=== PATIENT | female | born 1940 | race Two or more races ===

== ENCOUNTER 2024-05-22 13:31 | Emergency (ER) | payer OTHER, MEDICAID ==
[~2024-05-22] VITALS: Ht 152.4 cm; Wt 86.0 kg
--- NOTE | 2024-05-22 14:11 | ED.PDOC ---
History of Present Illness HPI Comments 84 y/o F, with a Hx of HTN and hypothyroidism, is BIBA for c/o abscess wound to left-medial thigh, today. Per EMS report, patient endorses on calling EMS and requesting to have her "abscess" that she has had for unknown duration of time evaluated. Patient reports no additional relevant or pertinent Hx, such as recent skin-contact exposure or previous injury to area. She denies having any additional associated symptoms at this time. Chief Complaint: Abscess Time Seen by MD: 13:30 Reviewed Notes: Nurses Notes, Air Conditioning Manager Notes, Medications, Allergies Home Meds Active Scripts Sulfamethoxazole W/Trimethopri (Bactrim Ds Tablet) 1 Tab Tb, 1 TAB PO BID for 7 Days, #14 TAB Prov:KOBI BENOIT MD 05/22/24 Information Source: Patient, Emergency Med Personnel Mode of Arrival: EMS Severity: Moderate Timing: Other (see HPI) Duration: Since onset Prehospital treatment: 12 Lead EKG, Server Past Medical History PAST MEDICAL HISTORY: HTN, Thyroid (hypothyroidism ) Surgical History: Denies all surgeries JOB MOLDER History: No Pertinent JOB MOLDER History Family History Family History: Reviewed,noncontributory to illness, No family hx of Cancer, No family hx of DM, No family hx of Heart ana maria, No family hx of HTN, No family hx ofKidney ana maria, No family hx of Liver ana maria, No family hx of Lung ana maria, No family hx of Stroke Social History Smoker: Non-Smoker Alcohol: Denies ETOH Use Drugs: Denies Drug Use Lives In: Home Integumetry: reports: wounds (abscess wound to left-medial thigh) All Other Systems: Reviewed and Negative (negative unless otherwise stated above or in HPI) Physical Exam General Appearance: No Apparent Distress, Normal HEENT: Normal ENT Inspection, Pharynx Normal, TMs Normal Neck: Full Range of Motion, Non-Tender, Normal, Normal Inspection Respiratory: Chest Non-Tender, Lungs Clear, No Accessory Muscle Use, No Respiratory Distress, Normal Breath Sounds Cardiovascular: No Edema, No JVD, No Murmur, No Gallop, Normal Peripheral Pulses, Regular Rate/Rhythm Breast Exam: Deferred Gastrointestinal: No Organomegaly, Non Tender, No Pulsatile Mass, Normal Bowel Sounds, Soft Genitalia: Deferred Pelvic: Deferred Rectal: Deferred Extremities: No calf tenderness, Normal capillary refill, Normal inspection, Normal range of motion, Non-tender, No pedal edema Musculoskeletal : Apperance: Normal Neurologic: Alert, carpenter bridge II-XII nml as Tested, No Motor Deficits, Normal Affect, Normal Mood, No Sensory Deficits Cerebellar Function: Normal Reflexes: Normal Skin: Dry, Normal Color, Warm, Other (mild cellulitis with no fluctuance to proximal-medial left thigh) Lymphatic: No Adenopathy Was a procedure done? Was a procedure done?: No Differential Dx Considerations may include: cellulitis X-Ray, Labs, Meds, VS Vital Signs Date Time Temp Pulse Resp B/P (MAP) Pulse Ox O2 Delivery O2 Flow Rate FiO2 05/22/24 16:04 93 16 93 Room Air 05/22/24 16:04 98.0 73 16 139/75 (96) 93 98.0 05/22/24 14:04 97.7 66 16 162/98 (119) 95 No images or lab were ordered, due to patient endorsing no symptoms at time of assessment, aside from initial complaint of wanting her abscess checked out. Time of 1ST Reevaluation: 14:00 Reevaluation 1ST: Unchanged Patient Education/Counseling: Diagnosis, Treatment Family Education/Counseling: No Family Present Departure 1 Departure Time of Disposition: 16:52 Impression: Primary Impression: Cellulitis of thigh Disposition: 01 HOME / SELF CARE / HOMELESS Condition: Stable Additional Instructions: Thank you for visiting our Emergency Room. I wish you full and complete recovery. Please follow the following instructions: 1. Take your medication bottles with you to EVERY DOCTOR'S VISIT (including your primary doctor). 2. Please follow up with your primary doctor in 2-3 days or sooner if symptoms do not improve. 3. Please read all the papers given to you at the time of the discharge so that you understand your condition better. 4. Please note that the emergency room visits are focused and not necessarily comprehensive. Therefore, it is possible that some occult medical conditions may go undiagnosed in the ER. 5. The emergency room visits are not and should not be thought of as replacement for regular visits with your primary doctor. 6. Therefore, it is absolutely critical that you follows up with your primary doctor on regular basis to make sure you receives a complete and comprehensive care. 7. I recommended the you take the hospital discharge papers to your primary care physician and other doctors' offices with you. 8. Go to your nearest emergency room if you think your condition gets worse or you think your condition is an emergency. e-Prescriptions Sulfamethoxazole W/Trimethopri (Bactrim Ds Tablet) 1 Tab Tb 1 TAB PO BID for 7 Days, #14 TAB Prov: KOBI BENOIT MD 05/22/24 Discharged With: Self Critical Care Note Critical Care Time?: No Stability Stability form required: No Heart Score Heart Score: Heart Score Response (Comments) Value History N/A 0 EKG N/A 0 Age N/A 0 Risk Factors N/A 0 Troponin N/A 0 Total 0 I personally scribed for KOBI BENOIT MD ([email or web address]) on 05/22/24 at 14:11. Electronically submitted by Rustam Landis ([email or web address]). KOBI BENOIT MD May 22, 2024 14:11
[2024-05-22 16:04] VITALS: BP 139/75; PULSE 93; RESP 16; TEMP 98; O2SAT 93
[2024-05-22] MEDS ORDERED: BACDST PO (16:11)
== END 2024-05-22 19:15 | disposition home or self-care (01) ==
LOC: ER 13:31 → EDBD 13:31 → ER 19:15
DX: L03.115 Cellulitis of right lower limb (principal); I10 Essential (primary) hypertension; E03.9 Hypothyroidism, unspecified